=== PATIENT | male | born 1955 | race Asian ===

== ENCOUNTER 2016-12-30 11:24 | Emergency (ER) | payer BC ==
[~2016-12-30] VITALS: Ht 175.3 cm; Wt 78.0 kg
[2016-12-30] MEDS ORDERED: LIDOCAINE HCL 1%/EPI 1:200,000 30 ML VIAL MC ONE (11:45)
[2016-12-30] MEDS ORDERED: TETANUS, DIPHTHERIA, PERTUSSIS VAC/PF 0.5ML (>7YR OLD) IM ONE (11:45)
[2016-12-30] MEDS ORDERED: ACETAMINOPHEN 325MG TABLET PO ONE (12:00)
[2016-12-30 13:52] VITALS: BP 132/71
== END 2016-12-30 13:59 | disposition home or self-care (01) ==
LOC: ER 11:36
DX: S01.01XA Laceration without foreign body of scalp, initial encounter (principal); K21.9 Gastro-esophageal reflux disease without esophagitis; E78.00 Pure hypercholesterolemia, unspecified; W19.XXXA Unspecified fall, initial encounter; Y93.89 Activity, other specified; Y92.89 Other specified places as the place of occurrence of the external cause; Y99.8 Other external cause status
CPT/HCPCS: 12002; 70450; 90715; 99284; A4217; X7700; Z7610